=== PATIENT | female | born 1985 | race Caucasian/White ===

== ENCOUNTER 2021-06-30 13:06 | Emergency (ER) | payer OTHER, SELFPAY ==
[2021-06-30 13:14] VITALS: BP 149/91; PULSE 91; RESP 16; TEMP 37.4; O2SAT 98
--- NOTE | 2021-06-30 13:44 | ED.EAR ---
HPI - Ear Problem General Chief complaint: Ear Stated complaint: ear pain/dizziness Time Seen by Provider: 06/30/21 13:50 Source: patient and RN notes reviewed Mode of arrival: ambulatory Limitations: no limitations History of Present Illness HPI Narrative: 36-year-old female presents concern for right ear discomfort, pressure that is worsening causing occasional feeling of dizziness when she moves certain ways. She denies headache, weakness in the extremity, difficulty speaking or swallowing. She reports she has not tried any [id number] medications. She denies any history of similar problems. She denies cough, shortness of breath, fever, body aches, chills, fever. MD Complaint: ear pain Related Data Home Medications Medication Instructions Recorded Confirmed ferrous sulfate 325 mg PO DAILY 05/25/19 05/25/19 Daily Multivitamin 06/30/21 Allergies Allergy/AdvReac Type Severity Reaction Status Date / Time No Known Allergies Allergy Verified 05/27/19 09:12 Review of Systems Review of Systems: CONSTITUTIONAL: Denies malaise, chills, sweats, or fever. EYES: Denies visual changes, redness, or discharge. ENT: Denies rhinorrhea, congestion, sinus pain, and sore throat. Reports right ear pressure CARDIOVASCULAR: Denies chest pain, palpitations, or edema. RESPIRATORY: Denies cough. Denies dyspnea. GASTROINTESTINAL: Denies abdominal pain, nausea, vomiting, diarrhea SKIN: Denies rash or itching. MUSCULOSKELETAL: Denies myalgia. NEUROLOGIC: Denies headache. Reports occasional dizziness All systems reviewed & are unremarkable except as noted in HPI and below PMFSH Past Medical History Medical History (Updated 06/30/21 @ 13:59 by Nenita Lowery NP) Anemia Comments At time of signature, agree with nursing past medical, surgical, social and family history. There is no relevant family history pertinent to the presenting complaint Exam Narrative: GENERAL: Well-appearing, well-nourished, and in no acute distress. HEAD: Normocephalic EYES: PERRLA, conjunctivae clear ENT: Nares clear, turbinates edematous, clear discharge. Mucous membranes moist. TM pearly castañeda with sharp light reflex with otitis effusion on the right; no tragal tenderness. Oropharynx not erythematous without lesions. Tonsils not enlarged and without exudate, no drooling, no hoarseness, no trismus, uvula midline. NECK: Supple. No lymphadenopathy CHEST: Clear to auscultation, breath sounds equal. No wheezing, rhonchi, rales, or stridor. No respiratory distress, speaks in full sentences. HEART: Regular rate and rhythm. No murmur heard. SKIN: Warm, dry, no rash. NEURO: Alert and oriented x3. PSYCH: Normal mood and affect Course Course Emergency Course: Patient is aware of diagnosis, understands and agrees to treatment plan. Anticipatory guidance given. Patient agrees to follow-up as directed and is aware of reasons to seek care at the emergency department. Portions of this record may have been created with voice recognition software Level of Care: Express Care Visit Vital Signs Vital signs: Vital Signs Temperature 99.4 F 06/30/21 13:14 Pulse Rate 91 06/30/21 13:14 Respiratory Rate 16 06/30/21 13:14 Blood Pressure 149/91 H 06/30/21 13:14 Pulse Oximetry 98 06/30/21 13:14 Temperature 99.4 F 06/30/21 13:14 Pulse Rate 91 06/30/21 13:14 Respiratory Rate 16 06/30/21 13:14 Blood Pressure 149/91 H 06/30/21 13:14 Pulse Oximetry 98 06/30/21 13:14 Reviewed. Patient has been instructed to follow up with her primary care provider within the next week regarding her elevated blood pressure today. Medical Decision Making MDM Narrative Medical decision making narrative: Differential diagnosis considered: De Luna virus, strep pharyngitis, allergic rhinitis, upper respiratory tract infection, sinusitis, rhinosinusitis, nasopharyngitis. viral pharyngitis, otitis media, otitis externa, otitis effusion, cerumen impaction, foreign body.
== END 2021-06-30 14:07 | disposition home or self-care (01) ==
PROVIDERS: Emergency Provider Nurse Practitioner; PCP Family Medicine
DX: H69.91 Unspecified Eustachian tube disorder, right ear (principal); D64.9 Anemia, unspecified; E78.00 Pure hypercholesterolemia, unspecified; I10 Essential (primary) hypertension
CPT/HCPCS: 99213; G0463

== ENCOUNTER 2023-01-08 17:45 | Emergency (ER) | payer OTHER, SELFPAY ==
[2023-01-08 17:55] VITALS: BP 153/104; PULSE 70; RESP 16; TEMP 36.9; O2SAT 100
--- NOTE | 2023-01-08 18:18 | ED.SKABFB ---
HPI - Skin/Abscess/Foreign Bdy General Chief complaint: Skin/Abscess/Foreign Body Stated complaint: Chin Swollen Source: patient and RN notes reviewed History of Present Illness HPI narrative: 38-year-old female presents to the [facility] today complaining of swelling to her chin. Patient stated yesterday she noticed that she had some redness under her chin and was unsure if she was in contact with something and and today the swelling and redness progressed to her chin today. Patient states the skin feels tight in her chin and complains it being warm to touch. Patient denies any difficulty breathing, denies any swelling in her mouth or under her tongue. Patient denies any swelling in her neck or her throat area. Patient denies any fevers, chills, body aches, nausea, vomiting. Denies any dental pain. Patient states something might have bit her on her chin but she is unsure. Patient denies any significant past medical history. Related Data Allergies Allergy/AdvReac Type Severity Reaction Status Date / Time No Known Allergies Allergy Verified 01/08/23 18:00 Review of Systems Review of Systems: CONSTITUTIONAL: Denies fever, chills, or sweats. EYES: Denies visual changes, redness, or discharge. ENT: Denies otalgia and sore throat. Denies swelling in mouth or under tongue. CARDIOVASCULAR: Denies chest pain, palpitations, or edema. RESPIRATORY: Denies cough or dyspnea. GASTROINTESTINAL: Denies abdominal pain, nausea, vomiting, or diarrhea. GENITOURINARY: Denies dysuria or hematuria. SKIN: Positive for rash on chin. MUSCULOSKELETAL: Denies back pain, joint pain, or myalgia. NEUROLOGIC: Denies headache, numbness, or weakness. Pertinent positives per HPI. [facility] Past Medical History Medical History (Updated 01/08/23 @ 18:26 by Zoya Camarena, RAH) Anemia Comments At the time of my signature, I reviewed and agree with the nursing past medical, surgical, social, and family history. There is no relevant family history pertinent to the patient complaint. Exam Narrative: GENERAL: This is a well-nourished, well-developed patient, in no apparent distress. HEAD: normocephalic, atraumatic. EYES: Sclera clear/white. Vision is grossly intact. EARS: External ears normal, auditory canals clear and without drainage, TMs normal without perforation. Hearing grossly intact. NOSE: External nose normal with no obvious nasal discharge, nares without redness, no rhinorrhea. THROAT: Mucous membranes moist, posterior pharynx clear. Floor of mouth is soft, not lifted, no erythema, no tenderness, tongue is not elevated NECK: Neck supple, non-tender without lymphadenopathy, masses or thyromegaly. CARDIOVASCULAR: Regular rate and rhythm without murmurs, gallops, or rubs. RESPIRATORY: Clear to auscultation. Breath sounds equal bilaterally. No wheezes, rales, or rhonchi. No stridor present to the trachea upon auscultation, trachea breath sounds are clear.. GASTROINTESTINAL: Abdomen soft, non-tender, nondistended. Bowel sounds are active. No hepato-splenomegaly, or palpable masses. No guarding. SKIN: Area of erythema with induration to the mentalis. No exudate is present NEURO: awake, alert, and oriented to person, place and time. There were no obvious focal neurologic abnormalities. EXTREMITIES: No clubbing, cyanosis, or edema. No joint tenderness, effusion, or edema noted. BACK: Nontender without deformity or crepitus. No flank tenderness. Course Course Level of Care: Express Care Visit Vital Signs Vital signs: Vital Signs Temperature 98.4 F 01/08/23 17:55 Pulse Rate 70 01/08/23 17:55 Respiratory Rate 16 01/08/23 17:55 Blood Pressure 153/104 H 01/08/23 17:55 Pulse Oximetry 100 01/08/23 17:55 Oxygen Delivery Room Air 01/08/23 17:55 Temperature 98.4 F 01/08/23 17:55 Pulse Rate 74 01/08/23 18:36 Respiratory Rate 16 01/08/23 17:55 Blood Pressure 154/109 H 01/08/23 18:36 Pulse Oximetry
[2023-01-08 18:36] VITALS: BP 154/109; PULSE 74
== END 2023-01-08 18:36 | disposition home or self-care (01) ==
PROVIDERS: Emergency Provider Nurse Practitioner Family; PCP Family Medicine
DX: L03.211 Cellulitis of face (principal)
CPT/HCPCS: 99213; G0463

== ENCOUNTER 2023-04-19 19:37 | Emergency (ER) | payer OTHER, SELFPAY ==
--- NOTE | 2023-04-19 19:38 | ED.SKABFB ---
HPI - Skin/Abscess/Foreign Bdy General Chief complaint: Skin/Abscess/Foreign Body Stated complaint: irritation on neck and chin Time Seen by Provider: 04/19/23 19:38 Source: patient Mode of arrival: ambulatory Limitations: no limitations History of Present Illness HPI narrative: Arianna is a 38-year-old female patient presenting to the clinic today with complaints of irritation on her neck and chin has been going on approximately 1 week. History of cellulitis in the past and is concerned that it may be coming back. Any fever or chills. She denies any difficulty breathing and is able to speak in full sentences. Blood pressure was 184/124-in the clinic. No history of high blood pressure and is not currently taking any medications for high blood pressure Related Data Home Medications Medication Instructions Recorded Confirmed No Home Medications 04/19/23 04/19/23 Allergies Allergy/AdvReac Type Severity Reaction Status Date / Time No Known Allergies Allergy Verified 04/19/23 19:55 Review of Systems Review of Systems: Pertinent positives per HPI. Patient denies any fever, chills, rash, headache, visual changes, dizziness, cough, runny nose, sore throat, shortness of breath, chest pain, palpitations, nausea, vomiting, diarrhea, constipation, abdominal pain, or any urinary issues. [facility] Past Medical History Medical History Anemia Comments At the time of my signature, I reviewed and agree with the nursing past medical, surgical, social, and family history. There is no relevant family history pertinent to the patient complaint. Exam Narrative: General: Well-developed, obese, in no apparent distress Head: Normocephalic, atraumatic, no obvious facial swelling although patient feels like face is swelling and tight Eyes: Pupils equally round and reactive to light bilaterally, EOM intact, sclera and conjunctive clear, no discharge, lids normal Ears: TMs intact and clear, ear canals clear, no drainage, grossly hearing normal. Nose: Nares patent, no discharge, no inflammation, no sinus tenderness. Mouth: Oropharynx without lesions or masses, good dentition, MMM. Neck: Supple, trachea midline, no enlargement of anterior or posterior cervical nodes, no thyroid masses or goiter palpable. Cardio: Regular rate and rhythm, s1 and s2 normal, no murmur appreciated. Resp: Clear to auscultation bilaterally anteriorly and posteriorly, no rhonchi, rales, wheezing or rubs Course Course Emergency Course: Portions of this record may have been created with voice recognition software. Level of Care: Express Care Visit Vital Signs Vital signs: Vital signs reviewed MDM - Skin/Abscess/Foreign Bdy MDM Narrative Medical decision making narrative: At the time of visit patient is resting comfortably on the exam table. Patient is reporting facial swelling however it is very hard to see any swelling due to large habitus. Mallampati is 4. Recommend transfer to the ER for further evaluation due to hypertension urgency and facial swelling. Patient denies any shortness of breath and would like to drive herself and declines EMS transfer. Patient would like to be transfer to [place] [facility]. Contacted Daria-physician's assistant film editor and report was given for continuity of care. Patient to be transferred via private car Differential Diagnosis Differential diagnosis: Likely abscess of skin or subcutaneous tissue, viral exanthem, urticaria, herpes zoster, allergic reaction to drug, cellulitis, eczema, insect bites, impetigo and contact dermatitis Discharge Plan Discharge Clinical Impression: Hypertensive urgency, Swelling of face Patient Disposition: Acute Care Hospital Condition: Guarded Prognosis Prescriptions: No Action No Home Medications Follow-up/Referrals: Yvan,Sharon Hurtado MD [Primary Care Provider] - Time of Disposition: 20:00 Quality
[2023-04-19 19:49] VITALS: BP 184/124; PULSE 80; RESP 16; TEMP 37.1; O2SAT 98
== END 2023-04-19 19:58 | disposition short-term general hospital (02) ==
PROVIDERS: Emergency Provider Nurse Practitioner Family; PCP Family Medicine
DX: I16.0 Hypertensive urgency (principal); R22.0 Localized swelling, mass and lump, head
CPT/HCPCS: 99212; G0463

== ENCOUNTER 2023-04-19 20:15 | Emergency (ER) | payer OTHER, SELFPAY ==
--- NOTE | ~2023-04-19 | CT_ITS ---
CT Facial Bones Clinical Indication: Submandibular swelling Technique: Following intravenous demonstration of 100 cc of Omnipaque 350 contrast material, contiguo us axial scans were obtained through the facial bones followed by coronal and sagittal reconstruction s. Dose reduction technique was used on this scan by utilizing automated exposure control and iterati ve reconstruction technique. The dose-length product (DLP) was 538.89 mGy-cm. Findings: No fractures are identified. The visualized paranasal sinuses are clear. Intraorbital soft tissues appear normal. No soft tissue swelling or fluid collection identified. No soft tissue mass identified. Impression: Significant abnormality seen. Reviewed, dictated and finalized at location . PRODUCTION ARTIST Impression: Significant abnormality seen.
[2023-04-19 20:39] VITALS: BP 172/122; PULSE 83; RESP 16; TEMP 36.5; O2SAT 100
[2023-04-19 22:52] LABS: Basophils Percent Auto 0.6 % (0.2-1.2); Eosinophils Absolute Auto 0.5 K/mm3 (0-0.3); Eosinophils Percent Auto 6.9 % (0-4.4); Hematocrit 36.5 % (37.0-47.0); Hemoglobin 12.1 g/dL (12.0-15.0); Immature Granulocyte Absolute 0.01 K/mm3 (0.00-0.031); Immature Granulocyte Percent A 0.2 % (0-0.5); Lymphocytes Percent Auto 22.9 % (18.3-44.2); Mean Corpuscular HGB Conc 33.2 g/dl (32-36); Mean Corpuscular Hemoglobin 27.1 pg (26-34); Mean Corpuscular Volume 81.7 fl (80-100); Mean Platelet Volume 8.5 fl (7.4-10.4); Monocytes Absolute Auto 0.5 K/mm3 (0.1-0.6); Monocytes Percent Auto 7.2 % (2.6-8.5); Neutrophils Absolute Auto 4.1 K/mm3 (1.3-6.7); Neutrophils Percent Auto 62.2 % (45.5-73.1); Platelet Count Result 323 k/mm3 (150-375); Red Blood Count 4.47 M/mm3 (4.2-5.4); Red Cell Distribution Width 13.4 % (11.5-14.5); White Blood Count 6.6 K/mm3 (4.5-10.0)
[2023-04-19 23:02] LABS: Alanine Aminotransferase 26 U/L (6-35); Albumin Level 4.5 g/dL (3.5-5.1); Alkaline Phosphatase 54 U/L (38-126); Anion Gap 7 mmol/L (8-16); Aspartate Amino Transferase 24 U/L (14-36); Bilirubin,Total 0.5 mg/dL (0.2-1.3); Blood Urea Nitrogen 11 mg/dL (7-17); Calcium 9.2 mg/dL (8.4-10.2); Carbon Dioxide 24 mmol/L (22-30); Chloride 105 mmol/L (98-107); Estimated CRCL calculation 92 ml/min; Estimated Glomerular Filt Rate > 60; Glucose 99 mg/dL (65-110); Potassium 3.6 mmol/L (3.4-5.0); Sodium 136 mmol/L (137-145)
--- NOTE | 2023-04-20 00:10 | PC.NURSE ---
Report received from STANISLAV Herring. Assumed care of patient at this time.
--- NOTE | 2023-04-20 00:13 | PC.NURSE ---
Patient taken to ct at this time.
[2023-04-20 01:05] VITALS: BP 165/111; PULSE 76; RESP 17; O2SAT 99
--- NOTE | 2023-04-20 01:08 | ED.GENADULT ---
[facility] - General Adult General Chief complaint: Skin/Abscess/Foreign Body Stated complaint: Facial, jaw, cheek swelling Time Seen by Provider: 04/19/23 22:02 History of Present Illness HPI narrative: Patient presents to the emergency department with concern for submandibular swelling and tightness. Also tightness in bilateral cheeks. She was diagnosed with chin cellulitis a couple weeks ago and was put on antibiotics. Since then she has been concerned that this tightness is getting worse. Her physician told her that the infection could settle into that area of her jaw. Patient denies fevers and chills. Denies all other symptoms. Denies that it is painful. No difficulty swallowing or breathing Related Data Home Medications Medication Instructions Recorded Confirmed No Home Medications 04/19/23 04/19/23 Allergies Allergy/AdvReac Type Severity Reaction Status Date / Time No Known Allergies Allergy Verified 04/19/23 19:55 Review of Systems Review of Systems: Negative except what is documented in the [facility] Past Medical History Medical History Anemia Exam Narrative: GENERAL: Well-appearing, well-nourished, and in no acute distress. HEAD: Normocephalic, atraumatic. EYES: PERRLA and EOMI. ENT: Nares clear, no rhinorrhea or epistaxis. Mucous membranes moist. NECK: Supple. CHEST: Clear to auscultation. No respiratory distress. HEART: Regular rate and rhythm. ABDOMEN: Soft, nontender, nondistended. EXTREMITIES: Normal range of motion. No edema. SKIN: Warm, dry, no rash. NEURO: No focal deficits. Alert and oriented x3. PSYCH: Normal mood and affect. Course Course Emergency Course: Unclear what patient's baseline exam is but no obvious abnormalities. CT scan negative for any acute pathology Vital Signs Vital signs: Vital Signs Temperature 36.5 C 04/19/23 20:39 Pulse Rate 83 04/19/23 20:39 Respiratory Rate 16 04/19/23 20:39 Blood Pressure 172/122 H 04/19/23 20:39 Pulse Oximetry 100 04/19/23 20:39 Oxygen Delivery Room Air 04/19/23 20:39 Temperature 36.5 C 04/19/23 20:39 Pulse Rate 76 04/20/23 01:05 Respiratory Rate 17 04/20/23 01:05 Blood Pressure 165/111 H 04/20/23 01:05 Pulse Oximetry 99 04/20/23 01:05 Oxygen Delivery Room Air 04/19/23 20:39 Medical Decision Making MDM Narrative Medical decision making narrative: High blood pressure persistent. Diastolic higher than expected. Blood pressure discussed with patient. She will need to follow-up with her primary care provider for blood pressure reading outside of the emergency department Vital Signs Vital Signs: Vital Signs Temperature 36.5 C 04/19/23 20:39 Pulse Rate 83 04/19/23 20:39 Respiratory Rate 16 04/19/23 20:39 Blood Pressure 172/122 H 04/19/23 20:39 Pulse Oximetry 100 04/19/23 20:39 Oxygen Delivery Room Air 04/19/23 20:39 Temperature 36.5 C 04/19/23 20:39 Pulse Rate 76 04/20/23 01:05 Respiratory Rate 17 04/20/23 01:05 Blood Pressure 165/111 H 04/20/23 01:05 Pulse Oximetry 99 04/20/23 01:05 Oxygen Delivery Room Air 04/19/23 20:39 Lab Data 04/19/23 22:48 04/19/23 22:48 Labs: Lab Results 04/19/23 Range/Units 22:48 WBC 6.6 (4.5-10.0) K/mm3 RBC 4.47 (4.2-5.4) M/mm3 Hgb 12.1 (12.0-15.0) g/dL Hct 36.5 L (37.0-47.0) % MCV 81.7 (80-100) fl MCH 27.1 (26-34) pg MCHC 33.2 (32-36) g/dl RDW 13.4 (11.5-14.5) % Plt Count 323 (150-375) k/mm3 MPV 8.5 (7.4-10.4) fl Immature Gran % (Auto) 0.2 (0-0.5) % Neut % (Auto) 62.2 (45.5-73.1) % Lymph % (Auto) 22.9 (18.3-44.2) % [place] % (Auto) 7.2 (2.6-8.5) % Eos % (Auto) 6.9 H (0-4.4) % Baso % (Auto) 0.6 (0.2-1.2) % Lymph # (Auto) 1.50 (0.9-3.2) K/mm3 [place] # (Auto) 0.5 (0.1-0.6) K/mm3 Eos # (Auto) 0.5 H (0-0.3) K/mm3 Baso # (Auto) 0.0 (0.0-0.1)
[2023-04-20 01:30] VITALS: BP 149/114
--- NOTE | 2023-04-20 01:30 | PC.NURSE ---
ERP notified of patients BP. Patient denying any symptoms. New orders placed.
[2023-04-20 01:32] VITALS: BP 152/111
[2023-04-20] MEDS: cloNIDine HCL 0.2 MG TABLET PO (01:53)
[2023-04-20 02:01] VITALS: BP 165/117
[2023-04-20 02:31] VITALS: BP 145/100; PULSE 77; RESP 17; O2SAT 99
[2023-04-20 02:49] VITALS: BP 145/100; PULSE 63; RESP 16; O2SAT 99
== END 2023-04-20 02:51 | disposition home or self-care (01) ==
PROVIDERS: Emergency Provider Emergency Medicine; PCP Family Medicine
DX: R22.0 Localized swelling, mass and lump, head (principal)
CPT/HCPCS: 36415; 70487; 80053; 85025; 96374; 99284; A9270; J1100; Q9967

== ENCOUNTER 2025-02-10 11:04 | Emergency (ER) | payer BC, SELFPAY ==
--- NOTE | 2025-02-10 11:09 | ED.EAR ---
HPI - Ear Problem General Chief complaint: Ear Stated complaint: RT Ear Pressure / Dizzy Time Seen by Provider: 02/10/25 11:20 Source: patient and RN notes reviewed Mode of arrival: ambulatory Limitations: no limitations History of Present Illness HPI Narrative: 40-year-old female presents with concern for right ear fullness, congestion and pressure with difficulty hearing for 1 month. Reports she woke up this morning and felt a little off balance particularly when she turns her head. She denies drainage from the ear. He denies pain. Denies runny nose, stuffy nose, sore throat, cough. Complaint: ear discharge Related Data Home Medications ?Medication ?Instructions ?Recorded ?Confirmed ?Last Taken ?Type bupropion HCl 150 mg 24 hr tablet, 150 mg PO QAM 12/03/23 12/03/23 Unknown History extended release losartan 50 mg tablet 50 mg PO DAILY 12/03/23 12/03/23 Unknown History zolpidem 5 mg tablet 5 mg PO QHS 12/03/23 12/03/23 Unknown History Allergies Allergy/AdvReac Type Severity Reaction Status Date / Time No Known Allergies Allergy Verified 02/10/25 11:07 Review of Systems Review of Systems: CONSTITUTIONAL: Denies malaise, chills, sweats, or fever. EYES: Denies visual changes, redness, or discharge. ENT: Denies rhinorrhea, congestion, sinus pain, and sore throat. Reports right ear fullness and congestion CARDIOVASCULAR: Denies chest pain, palpitations, or edema. RESPIRATORY: Denies cough. Denies dyspnea. GASTROINTESTINAL: Denies abdominal pain, nausea, vomiting, diarrhea SKIN: Denies rash or itching. MUSCULOSKELETAL: Denies myalgia. NEUROLOGIC: Denies headache. Reports feeling off balance All systems reviewed & are unremarkable except as noted in HPI and below PMFSH Past Medical History Medical History Anemia Anxiety Depression Hypertension Family History Family History (Updated 12/03/23 @ 09:46 by Mily Lindquist CMA) Father Depression Alcoholism Mother Pancreatic cancer Diabetes mellitus Grandparent Cerebrovascular accident Hypertension Social History Social History (Updated 12/03/23 @ 09:46 by Mily Lindquist CMA) Smoking status: Never smoker Alcohol intake: never Substance use: never Comments At time of signature, agree with nursing past medical, surgical, social and family history. There is no relevant family history pertinent to the presenting complaint Exam Narrative: GENERAL: Well-appearing, well-nourished, and in no acute distress. HEAD: Normocephalic EYES: PERRLA, conjunctivae clear ENT: Nares clear, turbinates edematous, clear discharge. Mucous membranes moist. TM pearly castañeda with dull light reflex on the right, sharp on the left; no tragal tenderness, EAC unremarkable. No post or pre-auricular erythema, induration, or warmth noted. Oropharynx not erythematous without lesions. Tonsils not enlarged and without exudate, no drooling, no hoarseness, no trismus, uvula midline. NECK: Supple. No lymphadenopathy CHEST: Clear to auscultation, breath sounds equal. No wheezing, rhonchi, rales, or stridor. No respiratory distress, speaks in full sentences. HEART: Regular rate and rhythm. No murmur heard. SKIN: Warm, dry, no rash. NEURO: Alert and oriented x3. PSYCH: Normal mood and affect Course Course Emergency Course: Patient is aware of diagnosis, understands and agrees to treatment plan. Anticipatory guidance given. Patient agrees to follow-up as directed and is aware of reasons to seek care at the emergency department. Portions of this record may have been created with voice recognition software Level of Care: Express [place] Emergency Department Visit Vital Signs Vital signs: Reviewed. Medical Decision Making MDM Narrative Medical decision making narrative: I evaluated this in the [facility]. History is obtained from patient who is an independent historian and physical exam was performed.? Available medical records were reviewed. ? Exam findings and relevant testing show no acute concerns or changes; patient is non-toxic appearing and is in no distress. Differential diagnosis considered: De Luna virus, strep pharyngitis, allergic rhinitis, upper respiratory tract infection, sinusitis, rhinosinusitis, nasopharyngitis. viral pharyngitis, otitis media, otitis externa, otitis effusion, pre/post auricular cellulitis, mastoiditis, cerumen impaction, foreign body. Exam findings show no acute concerns or changes; patient is non-toxic appearing and is in no distress. Patient is appropriate for outpatient treatment and follow-up. ? Differential diagnosis and treatment plan were discussed with the patient. Patient agrees with discussion and after shared medical decision making agrees with plan of care. All questions were answered to the patient's satisfaction. Patient is appropriate for outpatient treatment and follow-up. Critical Care Time Critical Care Time Critical Care Time: No Discharge Plan Discharge Clinical Impression: Fluid level behind tympanic membrane of right ear Patient Disposition: Home Condition: Stable Instructions: Fluid In The Ear (Serous Otitis Media) (ED) Additional Instructions: Take antibiotics as directed. Recommend antihistamine such as Benadryl at night time and Zyrtec-D during the day until symptoms improve Flonase nasal spray, 2 sprays spray in each nostril once daily until symptoms improve Also, recommend symptomatic treatment includes: rest, fluids, and increase humidity of the air at home. Recommend Acetaminophen as directed on the bottle to reduce fever, pain Please schedule a follow-up visit with your personal physician for further evaluation and treatment within 3-5days. If your symptoms persist, change or worsen significantly before you can contact your personal physician then please, without delay, go to the emergency department for further evaluation. Patient Language: Kittitian Prescriptions: New cetirizine-pseudoephedrine [Zyrtec-D] 5-120 mg tablet extended release 12 hr 1 tablet PO Q12H PRN (Reason: nasal congestion) Qty: 12 0RF fluticasone propionate [Flonase Allergy Relief] 50 mcg/actuation spray,suspension 2 spray NASAL DAILY 14 Days Qty: 15.8 0RF Rx Instructions: administer into each nostril No Action bupropion HCl 150 mg tablet extended release 24 hr 150 mg PO QAM zolpidem 5 mg tablet 5 mg PO QHS Rx Instructions: may repeat once if no response in 30-60 minutes losartan 50 mg tablet 50 mg PO DAILY Follow-up/Referrals: PHYSICIAN,PAPERHANGER SUPERVISOR [Primary Care Provider, Internal Medicine] Time of Disposition: 11:31
[2025-02-10 11:14] VITALS: BP 166/107; PULSE 76; RESP 18; TEMP 36.6; O2SAT 97
== END 2025-02-10 11:35 | disposition home or self-care (01) ==
PROVIDERS: Emergency Provider Nurse Practitioner
DX: H74.8X1 Other specified disorders of right middle ear and mastoid (principal); I10 Essential (primary) hypertension
CPT/HCPCS: 99213; G0463